=== PATIENT | male | born 1955 | race Two or more races ===

== ENCOUNTER 2020-10-16 13:27 | Outpatient (CLI) | payer OTHER | END 2020-10-16 13:28 | disposition home or self-care (01) | LOC: PPH VACUNA 13:27 | DX: Z23 Encounter for immunization (principal) ==

== ENCOUNTER 2021-05-28 09:00 | Outpatient (CLI) | payer OTHER | END 2021-05-28 09:30 | disposition home or self-care (01) | LOC: PPH VACUNA 09:00 | PROVIDERS: ATTEND Emergency Medicine Pediatric Emergency Medicine | DX: Z23 Encounter for immunization (principal) ==